=== PATIENT | male | born 1990 | race Caucasian/White ===

== ENCOUNTER 2019-09-18 19:35 | Emergency (ER) | payer SELFPAY ==
[~2019-09-18] VITALS: Ht 188 cm; Wt 143.2 kg
[2019-09-18 19:51] VITALS: BP 141/93; TEMP 98.6
[2019-09-18 20:28] VITALS: PULSE 80
[2019-09-18] MEDS ORDERED: AMOXICILLIN 8751 TAB PO (20:31)
== END 2019-09-18 21:00 | disposition home or self-care (01) ==
LOC: COL.ER 19:35
DX: S09.93XA Unspecified injury of face, initial encounter (principal); K08.119 Complete loss of teeth due to trauma, unspecified class; W22.8XXA Striking against or struck by other objects, initial encounter; Y92.69 Other specified industrial and construction area as the place of occurrence of the external cause; Y99.0 Civilian activity done for income or pay